=== PATIENT | female | born 1940 | race Caucasian/White ===

== ENCOUNTER 2019-12-13 14:38 | Emergency (ER) | payer OTHER ==
[~2019-12-13] VITALS: Ht 160 cm; Wt 63.5 kg
[2019-12-13 14:55] VITALS: Ht 160 cm; Wt 63.5 kg
[2019-12-13 16:14] VITALS: BP 145/80
== END 2019-12-13 16:14 | disposition home or self-care (01) ==
LOC: ED 14:38
DX: S82.002A Unspecified fracture of left patella, initial encounter for closed fracture (principal); G89.29 Other chronic pain; M25.562 Pain in left knee; I10 Essential (primary) hypertension; E11.9 Type 2 diabetes mellitus without complications; E78.00 Pure hypercholesterolemia, unspecified; Z98.890 Other specified postprocedural states; W18.30XA Fall on same level, unspecified, initial encounter; Y93.89 Activity, other specified; Y92.89 Other specified places as the place of occurrence of the external cause; Y99.8 Other external cause status